=== PATIENT | male | born 1975 ===

== ENCOUNTER 2023-08-17 14:59 | Emergency (ER) | payer OTHER ==
[2023-08-17] MEDS: Losartan 50 MG Tab PO ONE (15:50)
[2023-08-17] MEDS: Sodium Chloride 0.9% 2.5 ML Syringe FLUSH PRN (15:51)
[2023-08-17] MEDS: Sodium Chloride 0.9% 10 ML Syringe FLUSH PRN (15:51)
[2023-08-17] MEDS: Oxymetazoline 0.05% Nasal Spray 30 ML Bottle NAS ONE (15:51)
[2023-08-17] MEDS: Fluticasone NASAL Spray 16 GM Bottle NASBOTH STA (15:53)
== END 2023-08-17 17:15 | disposition home or self-care (01) ==
LOC: MW.ED 14:59
DX: I10 Essential (primary) hypertension (principal); R04.0 Epistaxis; Z75.8 Other problems related to medical facilities and other health care
CPT/HCPCS: 30903; 36415; 93005; 99284; A9270; J3490; 93010; 99283

== ENCOUNTER 2023-08-19 12:21 | Emergency (ER) | payer OTHER | END 2023-08-19 13:13 | disposition left against medical advice (07) | LOC: MW.ED 12:21 | DX: Z53.21 Procedure and treatment not carried out due to patient leaving prior to being seen by health care provider (principal) ==